=== PATIENT | female | born 1940 | race Caucasian/White ===

== ENCOUNTER 2023-09-13 08:20 | Emergency (ER) | payer OTHER ==
[~2023-09-13] VITALS: Ht 152.4 cm; Wt 46.7 kg
[2023-09-13] MEDS ORDERED: LOSARTAN POTAS100 M1 PO (08:28)
[2023-09-13 08:48] LABS: BASO % 0.3 % (0.0-1.0); HEMATOCRIT 42.6 % (37.0-47.0); LYMPH # 0.8 10*3/uL (1.3-4.4); LYMPH % 20.5 % (27.0-41.0); MEAN CELL VOLUME 93.8 fl (81.0-99.0); MEAN CORPUSCULAR HGB 31.1 pg (27.0-31.0); MEAN CORPUSCULAR HGB CONC 33.1 g/dl (33.0-37.0); MEAN PLATELET VOLUME 8.9 fl (9.6-12.3); MONO # 0.3 10*3/uL (0.1-1.0); MONO % 7.4 % (3.0-9.0); NEUT # 2.8 10*3/uL (2.3-7.9); NEUT % 70.3 % (47.0-73.0); PLATELET COUNT AUTOMATED 203 10*3/uL (130-400); RED BLOOD COUNT 4.54 10*6/uL (4.10-5.10); RED CELL DISTRI WIDTH 13.3 % (0-14.5); WHITE BLOOD COUNT 3.9 10*3/uL (4.8-10.8)
[2023-09-13 08:58] LABS: ACT PARTIAL THROMBO TIME 24.2 SECONDS (20.0-32.1)
[2023-09-13 09:07] LABS: BUN 13 mg/dl (9-23); CHLORIDE 107 mmol/L (98-107); POTASSIUM 3.6 mmol/L (3.4-5.1)
== END 2023-09-13 09:24 | disposition home or self-care (01) ==
LOC: ED 08:20
PROVIDERS: Internal Medicine
DX: I10 Essential (primary) hypertension (principal); Z79.899 Other long term (current) drug therapy; Z90.711 Acquired absence of uterus with remaining cervical stump; Z90.49 Acquired absence of other specified parts of digestive tract

== ENCOUNTER 2023-10-26 08:42 | Emergency (ER) | payer OTHER ==
[~2023-10-26] VITALS: Ht 152.4 cm; Wt 45.8 kg
[~2023-10-26 08:42] MED LIST: LOSARTAN POTAS100 M1 PO
[2023-10-26] MEDS ORDERED: Cyclobenzaprine Hydrochlorid 10 MG TAB PO ONE (09:25)
[2023-10-26] MEDS ORDERED: ACETAMINOPHEN 325 MG TAB PO ONE (09:25)
[2023-10-26] MEDS ORDERED: CYCLOBENZAPRINE5 M3 PO (11:10)
== END 2023-10-26 11:29 | disposition home or self-care (01) ==
LOC: ED 08:42
DX: M62.838 Other muscle spasm (principal); M54.2 Cervicalgia; M25.511 Pain in right shoulder; Z79.899 Other long term (current) drug therapy; Z90.710 Acquired absence of both cervix and uterus; Z90.49 Acquired absence of other specified parts of digestive tract; Z98.890 Other specified postprocedural states; V89.2XXA Person injured in unspecified motor-vehicle accident, traffic, initial encounter; Y93.89 Activity, other specified; Y92.488 Other paved roadways as the place of occurrence of the external cause; Y99.8 Other external cause status

== ENCOUNTER 2024-03-09 17:59 | Emergency (ER) | payer OTHER ==
[~2024-03-09] VITALS: Ht 152.4 cm; Wt 46.3 kg
[~2024-03-09 17:59] MED LIST changes: +CYCLOBENZAPRINE5 M3 PO
== END 2024-03-09 18:38 | disposition home or self-care (01) ==
LOC: ED 17:59
DX: Z00.01 Encounter for general adult medical examination with abnormal findings (principal); I10 Essential (primary) hypertension; M79.7 Fibromyalgia; Z90.710 Acquired absence of both cervix and uterus; Z90.49 Acquired absence of other specified parts of digestive tract; Z98.890 Other specified postprocedural states